=== PATIENT | female | born 1995 | race Caucasian/White ===

== ENCOUNTER 2016-11-04 00:27 | Emergency (ER) | payer MEDICAID, OTHER ==
[~2016-11-04] VITALS: Ht 167.6 cm; Wt 74.0 kg
[~2016-11-04 00:27] MED LIST: PREN1TAB17 PO
[2016-11-04 00:30] VITALS: Ht 167.6 cm; Wt 74.0 kg
[2016-11-04 04:37] LABS: BASOPHIL # 0.1 10^3/ul (0.0-0.1); BASOPHILS % 0.5 % (0.0-2.0); EOSINOPHILS # 0.1 10^3/ul (0.0-0.5); EOSINOPHILS % 1.2 % (0.0-7.0); HEMATOCRIT 38.7 % (37.0-47.0); HEMOGLOBIN 12.7 g/dl (12.0-16.0); LYMPHOCYTES # 2.6 10^3/ul (0.8-2.9); LYMPHOCYTES % 23.5 % (15.0-51.0); MEAN CORPUSCULAR HGB CONC 32.8 g/dl (32.0-37.0); MEAN CORPUSCULAR VOLUME 85.2 fl (82.0-101.0); MEAN PLATELET VOLUME 10.8 fl (7.4-10.4); MONOCYTE # 0.9 10^3/ul (0.3-0.9); MONOCYTES % 8.5 % (0.0-11.0); NEUTROPHIL # 7.3 10^3/ul (1.6-7.5); NEUTROPHILS % 65.9 % (39.0-77.0); PLATELET COUNT 214 10^3/UL (140-415); RED BLOOD COUNT 4.54 10^6/ul (4.20-5.40); WHITE BLOOD COUNT 11.1 10^3/ul (4.8-10.8)
--- NOTE | 2016-11-04 05:28 | ERD ---
ER Documentation Chief Complaint Date/Time DATE: 11/04/16 TIME: 05:24 Chief Complaint 8 wks , pelvic pain HPI This is a 21-year-old female presenting to the emergency department who is dating that she is 8 weeks complaining of intermittent pelvic pain for the past 2 days. Patient states the pain currently is 7 out of 10. Patient states her last menstrual periods 2 months ago. She denies any vaginal bleeding. She denies any nausea, vomiting, diarrhea, constipation. Denies any fevers. ROS All systems reviewed and are negative except as per history of present illness. Medications Home Meds Active Scripts Acetaminophen* (Tylenol*) 325 Mg Tablet, 2 TAB PO Q6 Y for PAIN AND OR ELEVATED TEMP, #20 TAB Prov:NIGHAT SWAN PA-C 11/04/16 Cephalexin* (Keflex*) 500 Mg Capsule, 500 MG PO TID for 7 Days, CAP Prov:NIGHAT SWAN PA-C 11/04/16 Reported Medications Vit-Iron Fumarate-FA ( Tablet) 1 Each Tablet, 1 TAB PO DAILY, TAB 10/13/14 Allergies Allergies: Coded Allergies: No Known Drug Allergies (Verified Allergy, Mild, 10/13/14) PMhx/Soc Medical and Surgical Hx: pt denies Medical Hx, pt denies Surgical Hx History of Surgery: No Anesthesia Reaction: No Hx Neurological Disorder: No Hx Respiratory Disorders: No Hx Cardiac Disorders: No Hx Psychiatric Problems: No Hx Miscellaneous Medical Probl: No Hx Alcohol Use: No Hx Substance Use: No Hx Tobacco Use: No Smoking Status: Never smoker Physical Exam Vitals Vital Signs Date Time Temp Pulse Resp B/P Pulse Ox O2 Delivery O2 Flow Rate FiO2 11/04/16 00:30 97.4 82 20 136/83 99 Physical Exam GENERAL: well-developed/well-nourished, in no apparent distress, non-toxic appearing HENT: NC/AT, moist mucous membranes EYES: Conjunctiva normal NECK: Supple, no lymphadenopathy PULM: CTA bilaterally, no rales, rhonchi, or wheezing heard CV: Normal S1S2, RRR, good capillary refill GI: Soft, non-distended, non-tender to palpation Normal bowel sounds, no masses or organomegaly felt on exam No gross peritonitis, no bruits Negative Rovsing, negative Connelly, negative McBurney's point, Negative CVAT BACK: No masses EXT: No clubbing, cyanosis, or edema NEURO: Alert and Orientated SKIN: Intact, normal turgor PSYCH: Normal mood and mentation Result Diagram: 11/04/16 0403 Results 24 hrs Laboratory Tests Test 11/04/16 04:03 11/04/16 05:47 White Blood Count 11.110^3/ul Red Blood Count 4.5410^6/ul Hemoglobin 12.7g/dl Hematocrit 38.7% Mean Corpuscular Volume 85.2fl Mean Corpuscular Hemoglobin 28.0pg Mean Corpuscular Hemoglobin Concent 32.8g/dl Red Cell Distribution Width 14.0% Platelet Count 55204^3/UL Mean Platelet Volume 10.8fl Neutrophils % 65.9% Lymphocytes % 23.5% Monocytes % 8.5% Eosinophils % 1.2% Basophils % 0.5% Nucleated Red Blood Cells % 0.0/100WBC Neutrophils # 7.310^3/ul Lymphocytes # 2.610^3/ul Monocytes # 0.910^3/ul Eosinophils # 0.110^3/ul Basophils # 0.110^3/ul Nucleated Red Blood Cells # 0.010^3/ul Beta HCG, Quantitative 92027.0mIU/ml Bedside Urine pH (LAB) 5.5 Bedside Urine Protein (LAB) Negative Bedside Urine Glucose (UA) Negative Bedside Urine Ketones (LAB) 3+ Bedside Urine Blood 1+ Bedside Urine Nitrite (LAB) Negative Bedside Urine Leukocyte Esterase (L 1+ Procedures/MDM This is a 21-year-old female last menstrual period 2 months prior to being seen presenting to the emergency department complaining of pelvic pain for the past 2 days. This is likely a urinary tract infection. Patient was also found to have an ovarian cyst the left side. There was no evidence of vaginal bleeding, complete , pyelonephritis, patient appears well nontoxic appearing. A urine dipstick showed positive for leukocyte esterase. CBC did not show any evidence of anemia or leukocytosis. Beta hCG was within normal limits. OB ultrasound was done and radiologist stated: Single live intrauterine with an estimated gestational age of 7 weeks and 4 days, with an ultrasound CAPRI of 06/19/2017. Small subchorionic hemorrhage. Left ovarian 1.8 cm corpus luteum cyst. Patient stable to be discharged home with a prescription for Keflex. Discussed return to the ER for any worsening sinus symptoms. She understands and agrees with plan Departure Diagnosis: Primary Impression: UTI in Condition: Stable NIGHAT SWAN PA-C Nov 04, 2016 05:28
--- NOTE | 2016-11-04 05:30 | RADRPT ---
PROCEDURE: Obstetrical ultrasound. CLINICAL INDICATION: Pelvic pain. TECHNIQUE: Multiple sonographic images of the pelvis were obtained with transabdominal technique. Images were obtained with fay scale and color Doppler. COMPARISON: No prior studies are available for comparison. FINDINGS: There is an intrauterine gestational sac with a pole identified. heart tones of 170 beat s per minute are identified. The crown-rump length averages 1.46 cm, compatible with 7 weeks a nd 6 days. The mean sac diameter averages 2.28 cm, compatible with 7 weeks and 1 day. A yolk sac is identified. There is a subchorionic collection measuring 1.1 cm. There is no pelvic free fluid. The right ovary measures 3.1 x 2.1 x 1.8 cm and the left ovary measur es 3.3 x 2.0 x 2.4 cm. There is normal flow to both ovaries. There is a corpus lutein cyst within th e left ovary measuring 1.8 x 1.8 cm. There is no suspicious adnexal mass identified. IMPRESSION: Single live intrauterine with an estimated gestational age of 7 weeks and 4 days, with an ultrasound CAPRI of 06/19/2017. Small subchorionic hemorrhage. Left ovarian 1.8 cm corpus luteum cyst. .Rey James MD, Date Time Electronically viewed and signed by .Rey James MD, on 11/04/2016 05:29 .T/
[2016-11-04 05:41] LABS: URINE BLOOD (Dip) POC 1+ (NEGATIVE)
[2016-11-04] MEDS ORDERED: CEPH-443 PO (05:50)
[2016-11-04] MEDS ORDERED: ACET325T33 PO (05:51)
== END 2016-11-04 06:04 | disposition home or self-care (01) ==
LOC: FTE 00:27
DX: O23.41 Unspecified infection of urinary tract in pregnancy, first trimester (principal); R10.2 Pelvic and perineal pain; Z3A.01 Less than 8 weeks gestation of pregnancy
CPT/HCPCS: 36415; 76801; 81003; 84702; 85025; 86900; 86901; Z7502

== ENCOUNTER 2016-11-09 10:58 | Emergency (ER) | payer OTHER ==
[~2016-11-09] VITALS: Wt 74.5 kg
[~2016-11-09 10:58] MED LIST changes: +ACET325T33 PO; +CEPH-443 PO
[2016-11-09 11:46] LABS: BASOPHILS % 0.4 % (0.0-2.0); EOSINOPHILS # 0.1 10^3/ul (0.0-0.5); EOSINOPHILS % 1.3 % (0.0-7.0); HEMATOCRIT 39.3 % (37.0-47.0); HEMOGLOBIN 12.6 g/dl (12.0-16.0); LYMPHOCYTES # 1.7 10^3/ul (0.8-2.9); MEAN CORPUSCULAR HEMOGLOBIN 27.3 pg (29.0-33.0); MEAN CORPUSCULAR HGB CONC 32.1 g/dl (32.0-37.0); MEAN CORPUSCULAR VOLUME 85.2 fl (82.0-101.0); MEAN PLATELET VOLUME 10.9 fl (7.4-10.4); MONOCYTE # 0.7 10^3/ul (0.3-0.9); MONOCYTES % 9.3 % (0.0-11.0); NEUTROPHIL # 4.5 10^3/ul (1.6-7.5); NEUTROPHILS % 64.7 % (39.0-77.0); PLATELET COUNT 211 10^3/UL (140-415); RED BLOOD COUNT 4.61 10^6/ul (4.20-5.40); RED CELL DISTRIBUTION WIDTH 14.2 % (11.5-14.5)
--- NOTE | 2016-11-09 12:00 | RADRPT ---
PROCEDURE: US OB. CLINICAL INDICATION: Vaginal bleeding TECHNIQUE: Transabdominal and transvaginal views of the pelvis were obtained. COMPARISON: 11/04/16 FINDINGS: There is a single intrauterine gestation with a CRL measuring 1.8 cm, corresponding to a gestational age of 8 weeks and 2 days. The heart rate is noted at 176 bpm. There is a hypoechoic fluid collection adjacent to the gestational sac, consistent with subchorionic hemorrhage. The right ovary measures 2.1 x 1.6 x 1.9 cm. The left ovary measures 2.8 x 2.2 x 2.6 cm. No ovarian or adnexal mass lesion is seen. There is no free fluid. RPTAT: AA IMPRESSION: Single live intrauterine with an estimated gestational age of 8 weeks and 2 days, based on ultrasound measurements. Small area of subchorionic hemorrhage, not significantly changed. Close follow-up is recommended. .Harvinder Paulino MD, MD Date Time Electronically viewed and signed by .Harvinder Paulino MD, on 11/09/2016 11:59 .S/
[2016-11-09 12:11] LABS: ADD UMIC YES; UR ASCORBIC ACID NEGATIVE (NEGATIVE); UR BACTERIA FEW /HPF (NONE SEEN); UR BILIRUBIN (Dip) NEGATIVE (NEGATIVE); UR BLOOD (Dip) 3+ mg/dL (NEGATIVE); UR CLARITY SLIGHTLY CLOUDY (CLEAR); UR COLOR STRAW (YELLOW); UR GLUCOSE (Dip) NEGATIVE (NEGATIVE); UR KETONES (Dip) NEGATIVE (NEGATIVE); UR LEUKOCYTE ESTERASE (Dip) 1+ Leu/ul (NEGATIVE); UR NITRITE (Dip) NEGATIVE (NEGATIVE); UR RBC 2 /HPF (0-5); UR SPECIFIC GRAVITY (Dip) 1.001 (1.003-1.030); UR SQUAMOUS EPITHELIAL CELL FEW /HPF (FEW); UR TOTAL PROTEIN (Dip) NEGATIVE (NEGATIVE); UR UROBILINOGEN (Dip) NEGATIVE (NEGATIVE)
[2016-11-09] MEDS ORDERED: NITR-58 PO (12:38)
--- NOTE | 2016-11-09 12:58 | ERD ---
ER Documentation Chief Complaint Date/Time DATE: 11/09/16 TIME: 12:55 Chief Complaint VAG BLEEDING PT 8 WEEKS PG HPI 21-year-old female who is A0, approximately 8 weeks presents complaining of vaginal bleeding that started this morning. She complains of slight amount of red blood, becoming brown blood one time this morning. She states that she does not continue to have any bleeding, has not noticed any pain. She denies fevers or chills. She reports that she did go see her clinic this morning that have sent her to the ER for further evaluation. ROS All systems reviewed and are negative except as per history of present illness. Medications Home Meds Active Scripts Nitrofurantoin Monohyd Macrocr* (Macrobid*) 100 Mg Capsr, 100 MG PO BID for 5 Days, CAP Prov:SABRINA PADILLA PA-C 11/09/16 Acetaminophen* (Tylenol*) 325 Mg Tablet, 2 TAB PO Q6 Y for PAIN AND OR ELEVATED TEMP, #20 TAB Prov:NIGHAT SWAN PA-C 11/04/16 Cephalexin* (Keflex*) 500 Mg Capsule, 500 MG PO TID for 7 Days, CAP Prov:NIGHAT SWAN PA-C 11/04/16 Reported Medications Vit-Iron Fumarate-FA ( Tablet) 1 Each Tablet, 1 TAB PO DAILY, TAB 10/13/14 Allergies Allergies: Coded Allergies: No Known Drug Allergies (Verified Allergy, Mild, 10/13/14) PMhx/Soc Medical and Surgical Hx: pt denies Medical Hx, pt denies Surgical Hx History of Surgery: No Anesthesia Reaction: No Hx Neurological Disorder: No Hx Respiratory Disorders: No Hx Cardiac Disorders: No Hx Psychiatric Problems: No Hx Miscellaneous Medical Probl: No Hx Alcohol Use: No Hx Substance Use: No Hx Tobacco Use: No Smoking Status: Never smoker Physical Exam Vitals Vital Signs Date Time Temp Pulse Resp B/P Pulse Ox O2 Delivery O2 Flow Rate FiO2 11/09/16 11:02 98.7 75 17 128/74 98 Physical Exam General: Well-developed, well-nourished. The patient appears in no acute distress. HEENT: Head is normocephalic, atraumatic. No scleral icterus. Neck: Supple. Nontender. Lungs: Clear to auscultation. Normal air movement. Heart: Regular rate and rhythm. S1 and S2 are normal. No murmurs, gallops, or rubs. Abdomen: Nondistended. No pain, no masses Extremities: No clubbing or cyanosis. Moving extremities x 4. No weakness. Neurologic: Alert and oriented 3. No focal deficits. Normal speech and gait. Skin: Normal turgor. No rash or lesions. Result Diagram: 11/09/16 1140 Results 24 hrs Laboratory Tests Test 11/09/16 11:40 White Blood Count 7.010^3/ul Red Blood Count 4.6110^6/ul Hemoglobin 12.6g/dl Hematocrit 39.3% Mean Corpuscular Volume 85.2fl Mean Corpuscular Hemoglobin 27.3pg Mean Corpuscular Hemoglobin Concent 32.1g/dl Red Cell Distribution Width 14.2% Platelet Count 73893^3/UL Mean Platelet Volume 10.9fl Neutrophils % 64.7% Lymphocytes % 24.0% Monocytes % 9.3% Eosinophils % 1.3% Basophils % 0.4% Nucleated Red Blood Cells % 0.0/100WBC Neutrophils # 4.510^3/ul Lymphocytes # 1.710^3/ul Monocytes # 0.710^3/ul Eosinophils # 0.110^3/ul Basophils # 0.010^3/ul Nucleated Red Blood Cells # 0.010^3/ul Urine Color STRAW Urine Clarity SLIGHTLY CLOUDY Urine pH 6.0 Urine Specific [place] 1.001 Urine Ketones NEGATIVEmg/dL Urine Nitrite NEGATIVEmg/dL Urine Bilirubin NEGATIVEmg/dL Urine Urobilinogen NEGATIVEmg/dL Urine Leukocyte Esterase 1+Ben/ul Urine Microscopic RBC 2/HPF Urine Microscopic WBC 2/HPF Urine Squamous Epithelial Cells FEW/HPF Urine Bacteria FEW/HPF Urine Hemoglobin 3+mg/dL Urine Glucose NEGATIVEmg/dL Urine Total Protein NEGATIVEmg/dl Beta HCG, Quantitative 88787.0mIU/ml DIAGNOSTIC IMAGING REPORT Patient: KVNG BENEDICT : 1995 Age: 21 Sex: F MR #: [id number] DOS: 11/09/16 0000 Ordering MD: SABRINA PADILLA PA-C Location: [facility] Room/Bed: PROCEDURE: US OB. CLINICAL INDICATION: Vaginal bleeding TECHNIQUE: Transabdominal and transvaginal views of the pelvis were obtained. COMPARISON: 11/04/16 FINDINGS: There is a single intrauterine gestation with a CRL measuring 1.8 cm, corresponding to a gestational age of 8 weeks and 2 days. The heart rate is noted at 176 bpm. There is a hypoechoic fluid collection adjacent to the gestational sac, consistent with subchorionic hemorrhage. The right ovary measures 2.1 x 1.6 x 1.9 cm. The left ovary measures 2.8 x 2.2 x 2.6 cm. No ovarian or adnexal mass lesion is seen. There is no free fluid. RPTAT: AA IMPRESSION: Single live intrauterine with an estimated gestational age of 8 weeks and 2 days, based on ultrasound measurements. Small area of subchorionic hemorrhage, not significantly changed. Close follow-up is recommended. .Harvinder Paulino MD, Date Time Electronically viewed and signed by .Harvinder Paulino MD, on 11/09/2016 11: 59 .S/ CC: SABRINA PADILLA PA-C Procedures/MDM 21-year-old female comes in with a single live intrauterine at 8 weeks , seen on ultrasound as well as subchorionic hemorrhage I can explain patient's history of vaginal bleeding. She is hemodynamically stable, does not show any signs of infection, and ectopic is ruled out at this time and ultrasound. Type and Rh is O+, there is no indication for RhoGam. Urine does show 1+ leukocyte esterase, given that she is although she is asymptomatic will be treated. She is to follow-up with OB in 3-4 days. Departure Diagnosis: Primary Impression: Vaginal bleeding in patient at less than 20 weeks ges... Condition: Good Patient Instructions: Understanding Urinary Tract Infections (UTIs), Bleeding During Early Additional Instructions: Patient was advised to follow-up with their OB in 3-4 days for a recheck examination. If they were to develop any worsening symptoms sooner, including heavy vaginal bleeding or pelvic pain, they are to return to the ER for further evaluation. SABRINA PADILLA PA-C Nov 09, 2016 12:57
[2016-11-09 13:35] VITALS: BP 113/66; PULSE 63; RESP 12; TEMP 97.7
== END 2016-11-09 13:35 | disposition home or self-care (01) ==
LOC: FTE 10:58
DX: O20.9 Hemorrhage in early pregnancy, unspecified (principal); Z3A.08 8 weeks gestation of pregnancy
CPT/HCPCS: 36415; 76801; 81001; 84702; 85025; 86900; 86901; Z7502

== ENCOUNTER 2016-12-08 21:25 | Emergency (ER) | payer OTHER ==
[~2016-12-08] VITALS: Wt 73.0 kg
[~2016-12-08 21:25] MED LIST changes: -CEPH-443 PO; +NITR-58 PO
[2016-12-08] MEDS ORDERED: FAMOTIDINE 20 MG TAB PO ONE (23:00)
[2016-12-08 23:40] LABS: BASOPHILS % 0.3 % (0.0-2.0); EOSINOPHILS # 0.1 10^3/ul (0.0-0.5); EOSINOPHILS % 1.1 % (0.0-7.0); HEMATOCRIT 38.3 % (37.0-47.0); HEMOGLOBIN 12.7 g/dl (12.0-16.0); LYMPHOCYTES # 2.2 10^3/ul (0.8-2.9); LYMPHOCYTES % 22.7 % (15.0-51.0); MEAN CORPUSCULAR HEMOGLOBIN 28.5 pg (29.0-33.0); MEAN CORPUSCULAR HGB CONC 33.2 g/dl (32.0-37.0); MEAN CORPUSCULAR VOLUME 85.9 fl (82.0-101.0); MEAN PLATELET VOLUME 10.8 fl (7.4-10.4); MONOCYTE # 0.7 10^3/ul (0.3-0.9); MONOCYTES % 6.9 % (0.0-11.0); NEUTROPHILS % 68.7 % (39.0-77.0); PLATELET COUNT 207 10^3/UL (140-415); RED BLOOD COUNT 4.46 10^6/ul (4.20-5.40); RED CELL DISTRIBUTION WIDTH 13.8 % (11.5-14.5); WHITE BLOOD COUNT 9.6 10^3/ul (4.8-10.8)
--- NOTE | 2016-12-08 23:40 | RADRPT ---
PROCEDURE: FIRST TRIMESTER OBSTETRICAL ULTRASOUND: CLINICAL INDICATION: 21 years of age, female. Vaginal bleeding . COMPARISON: None available. TECHNIQUE: Real-time sonographic images of the pelvis were obtained transabdominally and transvagina lly utilizing fay scale, color, and Doppler imaging. FINDINGS: LMP August 26, 2016 EGA by dates: 14 weeks 6 days CAPRI by dates: June 02, 2017 Uterus: Anteverted . Gestational sac: There is an intrauterine with an intrauterine gestational sac and fetus. The placenta is forming on the posterior aspect of the uterus. There may be a small 0.9 cm subchorio kevan hemorrhage. cardiac activity is identified. Embryonic heart rate: 148 beats/min. BIOMETRY: BPD = 2.3 cm , 13-week 6 days HC = 8.7 cm , 13 weeks 6 days AC = 6.9 cm , and 13 weeks 4 days FL = 1.2 cm , 13 weeks 3 days Composite sonographic age: 13 weeks 5 days plus or minus 1 week Estimated due date by ultrasound measurements: June 10, 2017 Cervix: Closed. Amniotic fluid: Maximum vertical pocket 3.1 cm Right ovary: Not visualized Left ovary: Not visualized Bladder: Visualized bladder is normal. Other: No free fluid. IMPRESSION: Single live intrauterine . Composite sonographic age by ultrasound measurements is 13 weeks 5 days and the estimated due date by ultrasound is June 10, 2017. This is discordant with the expe cted gestational age by dates by 1 week. Possible small subchorionic hemorrhage measuring 0.9 cm. RPTAT: HCTS Physician Sagar Date Time Electronically viewed and signed by Physician Sagar on 12/08/2016 23:39 CS/
[2016-12-08 23:48] LABS: ADD UMIC YES; UR ASCORBIC ACID NEGATIVE (NEGATIVE); UR BACTERIA FEW /HPF (NONE SEEN); UR BILIRUBIN (Dip) NEGATIVE (NEGATIVE); UR BLOOD (Dip) NEGATIVE (NEGATIVE); UR CLARITY SLIGHTLY CLOUDY (CLEAR); UR COLOR YELLOW (YELLOW); UR GLUCOSE (Dip) NEGATIVE (NEGATIVE); UR KETONES (Dip) 2+ mg/dL (NEGATIVE); UR LEUKOCYTE ESTERASE (Dip) TRACE Leu/ul (NEGATIVE); UR MUCUS FEW /HPF (NONE SEEN); UR NITRITE (Dip) NEGATIVE (NEGATIVE); UR RBC 6 /HPF (0-5); UR SPECIFIC GRAVITY (Dip) 1.025 (1.003-1.030); UR SQUAMOUS EPITHELIAL CELL FEW /HPF (FEW); UR TOTAL PROTEIN (Dip) NEGATIVE (NEGATIVE); UR UROBILINOGEN (Dip) 1+ mg/dL (NEGATIVE)
[2016-12-09 00:01] LABS: ALBUMIN 4.2 g/dl (3.3-4.9); ALBUMIN/GLOBULIN RATIO 1.27; BILIRUBIN,INDIRECT 0.1 mg/dl (0-1.1); BILIRUBIN,TOTAL 0.1 mg/dl (0.2-1.3); CALCIUM 9.6 mg/dl (8.4-10.2); CREATININE 0.57 mg/dl (0.44-1.00); POTASSIUM 3.4 mmol/L (3.5-5.1); TOTAL PROTEIN 7.5 g/dl (6.1-8.1)
[2016-12-09] MEDS ORDERED: RANI150T9 PO (00:28)
[2016-12-09] MEDS ORDERED: SOD CHLORIDE 0.9% 1,000 ML IV ONE (00:30)
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
[2016-12-09 00:42] VITALS: BP 128/71; PULSE 66; RESP 20; TEMP 98.6
== END 2016-12-09 00:43 | disposition home or self-care (01) ==
LOC: FTE 21:25
DX: O34.81 Maternal care for other abnormalities of pelvic organs, first trimester (principal); R10.13 Epigastric pain; Z3A.13 13 weeks gestation of pregnancy
CPT/HCPCS: 36415; 76805; 80053; 81001; 83690; 85025; Z7502; Z7610; J7030

== ENCOUNTER 2017-06-07 12:15 | Inpatient (IN) | END 2017-06-09 14:15 | disposition home or self-care (01) | DRG 775 ==